=== PATIENT | female | born 1990 | race African-American/Black ===

== ENCOUNTER 2021-04-30 18:55 | Emergency (ER) | payer OTHER ==
[~2021-04-30] VITALS: Ht 160 cm; Wt 53.0 kg
[2021-04-30 19:11] VITALS: BP 101/72
[2021-04-30] MEDS ORDERED: IBUPROFEN 400MG TABLET PO ONE (19:45)
[2021-04-30] MEDS ORDERED: ACETAMINOPHEN 325MG TABLET PO ONE (19:45)
[2021-04-30] MEDS ORDERED: IBUP-2028 MT (21:08)
[2021-04-30] MEDS ORDERED: TOPUD PO (21:08)
[2021-04-30 21:56] LABS: CLARITY URINE CLEAR (CLEAR); COLOR URINE YELLOW (YELLOW); KETONES URINE NEGATIVE (NEGATIVE); LEUKOCYTE ESTERASE URINE 1+ (NEGATIVE); NITRITE URINE NEGATIVE (NEGATIVE); OCCULT BLOOD URINE NEGATIVE (NEGATIVE); PROTEIN URINE NEGATIVE (NEGATIVE); SPECIFIC GRAVITY URINE 1.009 (1.005-1.030); UROBILINOGEN URINE 0.2 E.U./dL (0.2-1.0)
[2021-04-30 22:06] LABS: UCG SCREEN NEGATIVE
== END 2021-04-30 21:19 | disposition home or self-care (01) ==
LOC: ER 18:55
DX: R53.81 Other malaise (principal)
CPT/HCPCS: 81003; 81025; 87804; 99283